=== PATIENT | female | born 1950 | race Caucasian/White ===

== ENCOUNTER → 2017-02-04 | Outpatient (CLI) | payer BC ==
--- NOTE | ~2017-02-04 | MY11 ---
[facility] A Service of [facility] & [facility] RADIOLOGY TEXT RESULTS PATIENT: LYNNETTE CASTELLANOS LOCATION: [facility] : 54 UNIT #: [id number] AGE: [address]: Lindsey Moore MD SEX: F ORDER DR: [id number] [facility] [address] [facility] [address] [place], [place] [address] [id number] O MR#: [id number] Acc #: [id number] NAME: LYNNETTE CASTELLANOS : 1950 SEX: F STUDY DATE/TIME: 02/04/2017 13:05 UNIT: [facility] ROOM: STUDY DESCRIPTION: MY Mammogram Screening Dig Julito Attending Physician: Lindsey Moore M.D. Referring Physician: Lindsey Moore M.D. Ordering Physician: Lindsey Moore M.D. Primary Care Physician: Lindsey Moore M.D. MEDICAL IMAGING REPORT This report is preliminary unless electronic signature is present EXAM Screening mammogram 02/04/2017 INDICATIONS 66-year-old with no personal history of breast cancer or family history. She has no current complaints. Routine digital screening views of both breasts were obtained with and without implant displacement. Study reviewed with an FDA-approved CAD device. COMPARISON STUDIES Comparison made with 10/08/2014, 08/29/2012, 11/10/2010, and 10/08/2008. FINDINGS The breast parenchyma shows scattered fibroglandular densities. There are no suspicious microcalcifications in either breast. The left breast on the CC view, there is an asymmetric density in the medial breast near the middle third. On the left MLO implant-displaced view, there is an asymmetric density in the inferior breast in the posterior third. Followup with spot views recommended. Ultrasound may be needed as well. Bilateral subpectoral saline implants remain in place. IMPRESSION 1. Benign right mammogram. 2. Asymmetric densities in the left breast as above. Additional imaging recommended. Patients over the age of 40 are entered into a reminder system with target due date for the next mammogram. A result letter will also be sent to the patient. BIRADS: 0 - Need additional imaging evaluation and/or prior mammograms STS. [facility] A Service of [facility] & [facility] RADIOLOGY TEXT RESULTS PATIENT: LYNNETTE CASTELLANOS [id number] : [birth year] UNIT #: [id number] AGE: [address]: Lindsey Moore MD SEX: F ORDER DR: for comparison Dictated by... Travon Lowe Jr., M.D. THIS IS AN ELECTRONICALLY VERIFIED REPORT Travon Lowe Jr., M.D. at 02/05/2017 7:24 AM CHRIS/arnie TD: 02/04/2017 17:23 JOB #: [id number] MEDICAL IMAGING REPORT Page 1 of 1 COPY
== END | disposition home or self-care (01) ==
LOC: CWCC 12:27
DX: Z12.31 Encounter for screening mammogram for malignant neoplasm of breast (principal); N64.89 Other specified disorders of breast; Z98.82 Breast implant status
CPT/HCPCS: G0202

== ENCOUNTER → 2017-02-13 | Outpatient (CLI) | payer BC ==
--- NOTE | ~2017-02-13 | MY7 ---
[facility] A Service of [facility] & [facility] RADIOLOGY TEXT RESULTS PATIENT: LYNNETTE CASTELLANOS LOCATION: [facility] : 54 UNIT #: [id number] AGE: [address]: Lindsey Moore MD SEX: F ORDER DR: [id number] [facility] [address]. [place], [place] [address] [id number] O MR#: [id number] Acc #: [id number] NAME: LYNNETTE CASTELLANOS : 1950 SEX: F STUDY DATE/TIME: 02/13/2017 7:59 UNIT: [facility] ROOM: STUDY DESCRIPTION: MY Mammogram Dx Dig Lt Attending Physician: Lindsey Moore M.D. Referring Physician: Lindsey Moore M.D. Ordering Physician: Lindsey Moore M.D. Primary Care Physician: Lindsey Moore M.D. MEDICAL IMAGING REPORT This report is preliminary unless electronic signature is present EXAM Left breast digital diagnostic mammogram with CAD, 02/13/2017 HISTORY Two asymmetric densities in the left breast on previous screening mammogram for which additional diagnostic imaging was recommend COMPARISON Bilateral screening mammogram 02/04/2017, 10/18/2014, 08/29/2012. FINDINGS True ML views obtained of the left breast utilizing digital technique and reviewed with an FDA-approved CAD device. Heterogeneously dense fibroglandular tissue is present within the left breast. There is a roughly 1.0 cm lesion in the inferior left breast thought to correspond to the 6 o'clock axis on the true ML implant-displaced view which persists and becomes more conspicuous on the spot compression MLO view. Additionally, there is a subcentimeter asymmetric density in the anterior third of the left breast thought to correspond to the 9 o'clock axis, anterior third, which persists upon and CC spot compression implant displaced views. Targeted diagnostic left breast ultrasound was performed on this same date. At the 6 o'clock axis of the left breast approximately 6.0 cm from the nipple, an oval slightly macrolobulated hypoechoic lesion with internal thick septations is seen. It is very closely situated to the implant capsule. No acoustic shadowing or internal Doppler vascularity is identified. Benign etiology such as a complex cyst is favored. Incidental finding of a simple cyst measuring about 3.0-4.0 mm is seen at the 6 o'clock axis 4.0 mm from the nipple. At the 9 o'clock axis 1.0 cm from the nipple in the subareolar region, STS. [facility] A Service of [facility] & [facility] RADIOLOGY TEXT RESULTS PATIENT: LYNNETTE CASTELLANOS LOCATION: [facility] : 54 UNIT #: [id number] AGE: [address]: Lindsey Moore MD SEX: F ORDER DR: there is a lobulated hypoechoic complex cystic appearing lesion measuring about 8.0 x 4.0 x 7.0 mm. It has thick internal septations. It demonstrates no acoustic shadowing, no detectable internal Doppler vascularity. It too, is favored to represent benign etiology such as a complex cystic lesion. Each of the sonographic abnormalities is thought to correspond to the mammographic findings. IMPRESSION Suspicious abnormality. Biopsy recommended. What are thought to be complex cystic lesions are seen at the 6 o'clock and 9 o'clock axis of the left breast sonographically, thought to correspond to the mammographic findings. Ultrasound-guided fine needle aspiration of each of these is recommended. Core biopsy is not advised at this time, due to potential risk of damage to the breast implant capsule. The findings and recommendations were discussed with the patient in the Radiology Department today. The procedure can be scheduled by the referring physician's office at the patient's convenience. The patient states that she is not on blood thinning medications at this time. I personally contacted, Sandra, the medical planner working with Dr. Moore, regarding recommendations for left breast nodule ultrasound-guided fine needle aspiration today, 02/13/2017 at 09:51. Patients over the age of 40 are entered into a reminder system with target due date for the next mammogram. A result letter will also be sent to the patient. Left Breast BIRADS 4 Suspicious Abnormality; Biopsy Should Be Considered Dictated by... Alena Curry M.D. THIS IS AN ELECTRONICALLY VERIFIED REPORT Alena Curry M.D. at 02/13/2017 1:52 PM Amirah TD: 02/13/2017 09:57 JOB #: [id number] MEDICAL IMAGING REPORT Page 1 of 1 COPY
--- NOTE | ~2017-02-13 | US24 ---
[facility] A Service of [facility] RADIOLOGY TEXT RESULTS PATIENT: LYNNETTE CASTELLANOS LOCATION: [facility] : 54 UNIT #: [id number] AGE: [address]: Lindsey Moore MD SEX: F ORDER DR: [id number] [facility] [address] [facility] [address] [facility] [address]. [place], [place] [address] [id number] O MR#: [id number] Acc #: [id number] NAME: LYNNETTE CASTELLANOS : 1950 SEX: F STUDY DATE/TIME: 02/13/2017 8:46 UNIT: [facility] ROOM: STUDY DESCRIPTION: US Breast Unilateral Attending Physician: Lindsey Moore M.D. Referring Physician: Lindsey Moore M.D. Ordering Physician: Lindsey Moore M.D. Primary Care Physician: Lindsey Moore M.D. MEDICAL IMAGING REPORT This report is preliminary unless electronic signature is present EXAM Left breast targeted diagnostic ultrasound. DATE 02/13/2017 HISTORY Asymmetric densities in left breast on previous screening mammogram for which diagnostic imaging was recommended. COMPARISON Bilateral screening mammogram 02/04/2017, 10/18/2014, 08/29/2012. Left breast diagnostic mammogram 02/13/2017. FINDINGS Targeted left breast diagnostic ultrasound was performed with attention to the 6 o'clock and 9 o'clock axis. Please refer to the diagnostic mammogram report for a full description of mammographic and sonographic findings and recommendations. IMPRESSION BIRADS category 4. Suspicious abnormality. Biopsy recommended. Please refer to the diagnostic left mammogram report from this same date for a full description of mammographic and sonographic findings and recommendations. Patients over the age of 40 are entered into a reminder system with target due date for the next mammogram. A result letter will also be sent to the patient. BIRADS: 4 Suspicious abnormality; biopsy should be considered. [facility] A Service of [facility] & [facility] RADIOLOGY TEXT RESULTS PATIENT: LYNNETTE CASTELLANOS LOCATION: [facility] : 54 UNIT #: [id number] AGE: [address]: Lindsey Moore MD SEX: F ORDER DR: Dictated by... Alena Curry M.D. THIS IS AN ELECTRONICALLY VERIFIED REPORT Alena Curry M.D. at 02/13/2017 1:52 PM RICKY/kenneth TD: 02/13/2017 09:59 JOB #: [id number] MEDICAL IMAGING REPORT Page 1 of 1 COPY
== END | disposition home or self-care (01) ==
LOC: CMAM 07:44
DX: R92.8 Other abnormal and inconclusive findings on diagnostic imaging of breast (principal)
CPT/HCPCS: 76641; G0206

== ENCOUNTER → 2017-02-26 | Day surgery (SDC) | payer BC ==
--- NOTE | ~2017-02-26 | US19 ---
[facility] A Service of [facility] & [facility] RADIOLOGY TEXT RESULTS PATIENT: LYNNETTE CASTELLANOS LOCATION: [facility] : 54 UNIT #: [id number] AGE: [address]: Lindsey Moore MD SEX: F ORDER DR: [id number] [facility] [address] [address] [facility]. [place], [place] [address] [id number] O MR#: [id number] Acc #: [id number] NAME: LYNNETTE CASTELLANOS : 1950 SEX: F STUDY DATE/TIME: 02/26/2017 13:58 UNIT: [facility] ROOM: STUDY DESCRIPTION: US Breast Cyst Aspiiration W I Attending Physician: Lindsey Moore M.D. Ordering Physician: Lindsey Moore M.D. Primary Care Physician: Lindsey Moore M.D. MEDICAL IMAGING REPORT This report is preliminary unless electronic signature is present REVISED REPORT SEE ADDENDUM EXAM Ultrasound guided cyst aspiration and fine needle aspiration HISTORY Multiple indeterminate lesions seen on mammography and ultrasound workup. The patient was shown to have 2 lesions at 6 o'clock and one at 9 o'clock. One lesion at 6 o'clock and the lesion at 9 o'clock appeared to be small probable cyst that were slightly angular in their outward appearance. The second area at 6 o'clock is a more ill-defined hypoechoic region that might represent multiple septated cysts. The patient has a breast implant and therefore it was recommended to do a fine needle aspiration rather than a core biopsy. FINDINGS After informed consent and sterile preparation and local anesthesia, I initially aspirated the small probable cystic lesion at 6 o'clock. This is 3 mm in diameter. This collapsed when it was punctured and disappeared. I then aspirated the larger region at 6 o'clock that is at least 8 mm in diameter. At least one area did appear to collapse, but the rest of it did not collapse upon aspiration. Then the lesion at 9 o'clock was aspirated and it also collapsed and disappeared. The cytopathology tech was then contacted and when she arrived, I performed a fine needle aspiration of the 6 o'clock remaining lesion with three passes with a 22-gauge needle under ultrasound guidance. The cytopathology tech confirmed the specimen was adequate. IMPRESSION The 2 smaller lesion with one at 6 o'clock and one at 9 o'clock were small cysts. They collapsed and disappeared upon puncture. The third lesion, STS. [facility] A Service of [facility] & [facility] RADIOLOGY TEXT RESULTS PATIENT: LYNNETTE CASTELLANOS LOCATION: [facility] : 54 UNIT #: [id number] AGE: [address]: Lindsey Moore MD SEX: F ORDER DR: which is at 6 o'clock 6 cm from the nipple is probably a complex cluster of cysts. I could not cause it to significantly decrease in size through aspiration and therefore a biopsy using 22-guage needles was performed and the tissue was given to the cytopathologist. If this returns a benign result, then I would recommend 6 month follow up mammogram and ultrasound for this finding. Dictated by... Waqas Skinner M.D. THIS IS AN ELECTRONICALLY VERIFIED REPORT Waqas Skinner M.D. at 02/27/2017 3:56 PM FEL/to TD: 02/27/2017 11:48 JOB #: [id number] ADDENDUM The pathology report has been returned and it shows scattered clusters of ductal type epithelial cells with a few hypercellular and a few with mild cytologic atypia. There is a comment saying that an adjacent ductal lesion cannot be completely ruled out and clinical and radiographic correlation is recommended. I certainly feel that the lesion is probably benign given its cystic appearance on the ultrasound. I would suggest a six month follow-up mammogram and ultrasound. Dictated by... Waqas Skinner M.D. THIS IS AN ELECTRONICALLY VERIFIED REPORT Waqas Skinner M.D. at 03/10/2017 1:54 PM BILL/rnboris TD: 03/09/2017 02:10 JOB #: [id number] MEDICAL IMAGING REPORT Page 1 of 1 COPY
== END | disposition home or self-care (01) ==
LOC: CWCC 13:40
DX: N60.02 Solitary cyst of left breast (principal); Z98.82 Breast implant status
CPT/HCPCS: 88172; 88173